=== PATIENT | male | born 2005 | race Caucasian/White ===

== ENCOUNTER 2024-01-08 09:58 | Outpatient (CLI) | payer BC, SELFPAY ==
--- NOTE | ~2024-01-08 | MR_ITS ---
EXAMINATION: MR knee LT wo con DATE: 01/08/2024 10:49 INDICATION: Left knee joint effusion TECHNIQUE: Magnetic resonance imaging (MRI) of the left knee was performed without intravenous contra st. Sequences included coronal PD-weighted FSE, coronal PD-weighted FS FSE, sagittal T2-weighted FSE , sagittal PD-weighted FS FSE and axial PD weighted fat saturated FSE. COMPARISON: None. FINDINGS: Medial compartment: Medial meniscus is normal. Articular cartilage is normal. Lateral compartment: Lateral meniscus is normal. Articular cartilage is normal. Patellofemoral compartment: Displaced osteochondral likely impaction fracture at the inferomedial aspect of the patella with prom inent underlying marrow edema. The 1.7 x 1.6 cm displaced osteochondral fragment can be seen in the r ecess anterior to the anterior horn of the medial meniscus. Remaining cartilage in the patellofemoral compartment is normal. Ligaments and tendons: Anterior and posterior cruciate ligaments are normal. The medial collateral ligament and fibular juana ateral ligament complex are normal. The extensor mechanism is normal. The visualized medial and later al hamstring tendons as well as the iliotibial band are normal. Fluid: Large left knee joint effusion. Osseous/other: In addition to the patellar fracture there is prominent marrow edema along the lateral nonarticular s urface of the lateral trochlea consistent with a or bone contusion in the setting of a patellar dislo cation/relocation impaction injury. No pathologic marrow replacing process. IMPRESSION: 1. Patellar lateral dislocation/relocation injury pattern with bone contusion at the nonarticular lat eral margin of the lateral trochlea and with impaction fracture at the inferomedial aspect of the med ial patellar facet with 1.7 x 1.6 cm displaced osteochondral fragment. 2. Large left knee joint effusion. Reviewed, dictated and finalized at location L. IMPRESSION: 1. Patellar lateral dislocation/relocation injury pattern with bone contusion a t the nonarticular lateral margin of the lateral trochlea and with impaction fr acture at the inferomedial aspect of the medial patellar facet with 1.7 x 1.6 c m displaced osteochondral fragment. 2. Large left knee joint effusion.
== END 2024-01-08 09:59 ==
LOC: GOSHIMG 10:02
PROVIDERS: Visit Provider Physician Assistant
DX: M25.462 Effusion, left knee (principal); S83.512A Sprain of anterior cruciate ligament of left knee, initial encounter; S83.282A Other tear of lateral meniscus, current injury, left knee, initial encounter; X58.XXXA Exposure to other specified factors, initial encounter
CPT/HCPCS: 73721